=== PATIENT | female | born 1960 | race Hispanic/Latino ===

== ENCOUNTER 2024-09-10 21:59 | Inpatient (IN) | payer MEDICARE, OTHER ==
[~2024-09-10] VITALS: Ht 157.5 cm; Wt 89.4 kg
[2024-09-10] MEDS: HYDRALAZINE HCL 20 MG/ML VIAL IV ONE (23:15)
[2024-09-10] MEDS: ASPIRIN 325 MG TAB PO ONE (23:59)
[2024-09-11] MEDS ORDERED: Morphine 4mg INJECTION 4 MG/ML INJ IV PRN (00:15)
[2024-09-11] MEDS ORDERED: NITROGLYCERIN 0.4 MG SUBL SL PRN (00:15)
[2024-09-11] MEDS ORDERED: ONDANSETRON HCL INJ 2MG/ML 2ML 2 MG/ML VIAL IV PRN (00:15)
[2024-09-11] MEDS: FAMOTIDINE 20 MG TAB PO SCH (00:27)
[2024-09-11 01:09] VITALS: TEMP 98.4
[2024-09-11] MEDS: ASPIRIN 81 MG CHEW TAB PO ONE (01:20)
[2024-09-11] MEDS: DEXTROSE 5%/0.9% SOD CHL 1,000 ML IV ONE (01:26)
[2024-09-11 03:49] LABS: CREATINE KINASE 808 IU/L (29-168)
[2024-09-11 03:57] LABS: TROPONIN I < 0.001 ng/mL (0-0.300)
[2024-09-11 05:59] VITALS: PULSE 74; RESP 20; O2SAT 96
[2024-09-11 08:14] LABS: TROPONIN I 0.005 ng/mL (0-0.300)
[2024-09-11 11:30] VITALS: PULSE 100; RESP 18
[2024-09-11 12:26] VITALS: BP 180/90; PULSE 80; RESP 22; O2SAT 99
[2024-09-11 17:15] LABS: TROPONIN I 0.008 ng/mL (0-0.300)
== END 2024-09-11 12:25 | disposition left against medical advice (07) | DRG 558 ==
LOC: FSED 22:28 → ERHOLD 09-11 00:13
PROVIDERS: ADMIT Internal Medicine; ATTEND Internal Medicine
DX: M62.82 Rhabdomyolysis (principal); R07.2 Precordial pain; I10 Essential (primary) hypertension; K57.90 Diverticulosis of intestine, part unspecified, without perforation or abscess without bleeding; M06.9 Rheumatoid arthritis, unspecified; F41.9 Anxiety disorder, unspecified
CPT/HCPCS: 36415; 71045; 80053; 80307; 81003; 82550; 84484; 85025; 85610; 93005; 94799; 99285; J0360; J7042